=== PATIENT | female | born 1965 | race Caucasian/White ===

== ENCOUNTER 2017-08-20 07:56 | Day surgery (SDC) | payer OTHER ==
[2017-08-20] MEDS ORDERED: FENTANYL 100MCG/2ML SOL ONE (09:20)
[2017-08-20] MEDS ORDERED: PROPOFOL 500 MG/50 ML EMU IV ONE (09:20)
[2017-08-20 10:37] VITALS: O2SAT 100
[2017-08-20 10:53] VITALS: BP 110/61; PULSE 72; RESP 18; TEMP 97.4
== END 2017-08-20 11:10 | disposition home or self-care (01) | DRG 951 ==
LOC: SURG 07:56
PROVIDERS: ATTEND Surgery
DX: Z12.11 Encounter for screening for malignant neoplasm of colon (principal); D12.4 Benign neoplasm of descending colon
CPT/HCPCS: 99001; J3010; J2704